=== PATIENT | male | born 1940 | race Caucasian/White ===

== ENCOUNTER 2021-05-12 03:05 | Emergency (ER) | payer MEDICARE, OTHER ==
[2021-05-12 03:23] LABS: BASOPHIL 0.5 % (0-2); EOSINOPHIL 2.9 % (0-7); HCT 36.1 % (42.0-52.0); HGB 12.2 g/dl (13.2-18.0); LYMPHOCYTE 33.1 % (15-48); MCH 33.1 pg (25.0-31.0); MCHC 33.8 g/dL (32.0-36.0); MCV 97.8 fL (78.0-100.0); MONOCYTE 9.2 % (0-12); NRBC 0; PLT 142 K/uL (150-400); RBC 3.69 M/uL (4.70-6.00); WBC 6.5 K/uL (4.0-10.5)
[2021-05-12 03:45] LABS: ALBUMIN 3.6 g/dL (3.4-5.0); BILIRUBIN - TOTAL 0.3 mg/dL (0.2-1.0); BUN/CREAT RATIO (CALC) 25.2 RATIO; CREATININE 1.11 mg/dL (0.67-1.17); GLOBULIN (CALCULATION) 3.5 g/dL; POTASSIUM 4.2 mmol/L (3.5-5.1); TOTAL PROTEIN 7.1 g/dL (6.4-8.2)
== END 2021-05-12 15:16 | disposition other institution (70) ==
LOC: FER 03:05
PROVIDERS: Emergency Medicine
DX: I25.110 Atherosclerotic heart disease of native coronary artery with unstable angina pectoris (principal); I24.9 Acute ischemic heart disease, unspecified; I21.4 Non-ST elevation (NSTEMI) myocardial infarction; I71.4 Abdominal aortic aneurysm, without rupture; I10 Essential (primary) hypertension; Z20.822 Contact with and (suspected) exposure to COVID-19
CPT/HCPCS: 36415; 71045; 71275; 80053; 83880; 84484; 85025; 85379; 93005; J1644; Q9967; U0002

== ENCOUNTER 2021-12-06 12:27 | Inpatient (IN) | payer MEDICARE, OTHER ==
[~2021-12-06] VITALS: Ht 162.6 cm; Wt 58.7 kg
[2021-12-06 14:49] LABS: BASOPHIL 0.1 % (0-2); EOSINOPHIL 1.6 % (0-7); HCT 31.6 % (42.0-52.0); HGB 10.5 g/dl (13.2-18.0); LYMPHOCYTE 7.2 % (15-48); MCH 32.2 pg (25.0-31.0); MCHC 33.2 g/dL (32.0-36.0); MCV 96.9 fL (78.0-100.0); MONOCYTE 9.2 % (0-12); MPV 10.9 fL (6.0-9.5); NEUTROPHIL 81.2 % (41-80); NRBC 0; PLT 139 K/uL (150-400); RBC 3.26 M/uL (4.70-6.00); RDW 14.4 % (11.5-14.0); WBC 10.9 K/uL (4.0-10.5)
[2021-12-06 14:52] LABS: INR 1.33 (0.9-1.2); PROTHROMBIN TIME 16.1 SECONDS (11.9-13.9); PTT 31.5 SECONDS (24.9-34.6)
[2021-12-06 15:05] LABS: ALBUMIN 2.9 g/dL (3.4-5.0); BILIRUBIN - TOTAL 1.2 mg/dL (0.2-1.0); BUN/CREAT RATIO (CALC) 15.5 RATIO; CREATININE 1.1 mg/dL (0.67-1.17); GLOBULIN (CALCULATION) 3.6 g/dL; MAGNESIUM 2.1 mg/dL (1.8-2.4); POTASSIUM 4.5 mmol/L (3.5-5.1); TOTAL PROTEIN 6.5 g/dL (6.4-8.2)
[2021-12-06 15:18] LABS: LACTIC ACID 1.6 mmol/L (0.4-1.9)
[2021-12-06 15:28] LABS: CORONAVIRUS 2019 SARS-COV-2 NEGATIVE (NEGATIVE); INFLUENZA A NAA NEGATIVE (NEGATIVE)
[2021-12-06 17:09] LABS: BILIRUBIN NEGATIVE (NEGATIVE); BLOOD NEGATIVE Ery/uL (NEGATIVE); CLARITY CLEAR (CLEAR); COLOR YELLOW (YELLOW); GLUCOSE (U) NORMAL (NORMAL); LEUKOCYTES NEGATIVE Leu/uL (NEGATIVE); NITRITE NEGATIVE (NEGATIVE); PROTEIN NEGATIVE (NEGATIVE); SPECIFIC GRAVITY <=1.005 (1.001-1.030); UROBILINOGEN 0.2 mg/dL (0.2-1.0)
[2021-12-06] MEDS ORDERED: LIPITOR40 MG PO (22:45)
[2021-12-06] MEDS ORDERED: ASPIRIN EC81 MG PO (22:45)
[2021-12-06] MEDS ORDERED: COREG 3.125M3.125 MG PO (22:46)
[2021-12-06] MEDS ORDERED: FEOSOL325 MG PO (22:46)
[2021-12-06] MEDS ORDERED: BRILINTA90 MG PO (22:47)
[2021-12-06] MEDS ORDERED: ISOSORBIDE MONO60 MG PO (22:47)
[2021-12-06] MEDS ORDERED: ARMOUR THYROID90 MG PO (22:48)
[2021-12-06] MEDS ORDERED: OMEGA 3 1,0001 EACH PO (22:51)
[2021-12-06] MEDS ORDERED: NIACIN100 MG PO (22:51)
[2021-12-06] MEDS ORDERED: VITAMIN D3250 MC1 PO (22:51)
[2021-12-06] MEDS ORDERED: DAILY VITAMIN1 EAC2 PO (22:53)
[2021-12-07 07:03] LABS: HCT 30.8 % (42.0-52.0); HGB 10.4 g/dl (13.2-18.0); MCH 32.4 pg (25.0-31.0); MCHC 33.8 g/dL (32.0-36.0); MPV 11.3 fL (6.0-9.5); RBC 3.21 M/uL (4.70-6.00); RDW 14.3 % (11.5-14.0); RETICULOCYTE COUNT 1.4 % (1.0-2.0); WBC 7.9 K/uL (4.0-10.5)
[2021-12-07 07:59] LABS: IRON % SATURATION 9.3 %SAT (20-50)
[2021-12-07 08:23] LABS: BUN/CREAT RATIO (CALC) 13.7 RATIO; CREATININE 1.02 mg/dL (0.67-1.17); POTASSIUM 3.7 mmol/L (3.5-5.1)
[2021-12-07] MEDS ORDERED: AUGMENTIN 500-1 EACH PO (13:42)
[2021-12-07] MEDS ORDERED: VIBRAMYCIN100 MG PO (13:42)
[2021-12-07] MEDS ORDERED: SACCHAROMYCES250 MG PO (13:42)
[2021-12-11] MEDS ORDERED: PAXLOVID 150-11 EACH PO (04:22)
== END 2021-12-07 14:30 | disposition home or self-care (01) | DRG 177 ==
LOC: FER 12:27 → FMS 20:47
PROVIDERS: Internal Medicine; Nurse Practitioner Acute Care; ADMIT Family Medicine
DX: J15.212 Pneumonia due to Methicillin resistant Staphylococcus aureus (principal); G93.41 Metabolic encephalopathy; I50.22 Chronic systolic (congestive) heart failure; J15.6 Pneumonia due to other Gram-negative bacteria; D69.6 Thrombocytopenia, unspecified; D64.9 Anemia, unspecified; I25.10 Atherosclerotic heart disease of native coronary artery without angina pectoris; Z20.822 Contact with and (suspected) exposure to COVID-19; E78.5 Hyperlipidemia, unspecified; I48.0 Paroxysmal atrial fibrillation; G47.33 Obstructive sleep apnea (adult) (pediatric); I25.5 Ischemic cardiomyopathy; R77.8 Other specified abnormalities of plasma proteins; N32.89 Other specified disorders of bladder; I71.4 Abdominal aortic aneurysm, without rupture; Z98.61 Coronary angioplasty status; I25.2 Old myocardial infarction; Z95.810 Presence of automatic (implantable) cardiac defibrillator; Z95.1 Presence of aortocoronary bypass graft; Z90.49 Acquired absence of other specified parts of digestive tract; Z82.49 Family history of ischemic heart disease and other diseases of the circulatory system; Z87.891 Personal history of nicotine dependence; Z28.311 Partially vaccinated for COVID-19
CPT/HCPCS: 36415; 70450; 71250; 80048; 80053; 81003; 82728; 83540; 83550; 83605; 83735; 83880; 84145; 84484; 85025; 85610; 85730; 87040; 93005; 94010; 94762; 97162; 97166; 97530; J2543; J3370; J7030; J7050; U0002

== ENCOUNTER 2021-12-15 18:39 | Emergency (ER) | payer MEDICARE, OTHER ==
[~2021-12-15 18:39] MED LIST: ARMOUR THYROID90 MG PO; ASPIRIN EC81 MG PO; AUGMENTIN 500-1 EACH PO; BRILINTA90 MG PO; COREG 3.125M3.125 MG PO; DAILY VITAMIN1 EAC2 PO; FEOSOL325 MG PO; ISOSORBIDE MONO60 MG PO; LIPITOR40 MG PO; NIACIN100 MG PO; OMEGA 3 1,0001 EACH PO; PAXLOVID 150-11 EACH PO; SACCHAROMYCES250 MG PO; VIBRAMYCIN100 MG PO; VITAMIN D3250 MC1 PO
[2021-12-15] MEDS ORDERED: TESSALON PERLE100 MG PO (20:08)
== END 2021-12-15 20:20 | disposition home or self-care (01) ==
LOC: FER 18:39
DX: U07.1 COVID-19 (principal); I50.9 Heart failure, unspecified; I25.2 Old myocardial infarction
CPT/HCPCS: 99283